=== PATIENT | male | born 1955 | race Caucasian/White ===

== ENCOUNTER 2021-06-20 20:54 | Emergency (ER) | payer OTHER, MEDICAID ==
[~2021-06-20] VITALS: Ht 170.2 cm; Wt 73.0 kg
[~2021-06-20 20:54] MED LIST: DOCU250C14; MOTRIN; TRAM50TA94; ZOLP5TAB2
[2021-06-20] MEDS ORDERED: LIDOCAINE 5% PATCH TOP SCH (21:30)
[2021-06-20] MEDS ORDERED: ACETAMINOPHEN 650MG/20.3ML UDC PO ONE (21:30)
[2021-06-20] MEDS ORDERED: METHOCARBAMOL 500MG TABLET PO ONE (21:30)
[2021-06-20] MEDS ORDERED: KETOROLAC 60MG/2ML VIAL IM ONE (23:00)
[2021-06-20] MEDS ORDERED: MORPHINE SULFATE 4 MG/ML CPJ (NOT FOR IM USE) IV ONE (23:30)
[2021-06-21] MEDS ORDERED: METH-653 MT (00:31)
[2021-06-21] MEDS ORDERED: IBUP-2028 MT (00:31)
[2021-06-21] MEDS ORDERED: LIDO1ADH5 TP (00:32)
[2021-06-21] MEDS ORDERED: MORPHINE SULFATE 10 MG/ML CPJ IM ONE (01:15)
[2021-06-21 01:36] VITALS: BP 146/76
== END 2021-06-21 01:55 | disposition home or self-care (01) ==
LOC: ER 20:54
DX: M54.6 Pain in thoracic spine (principal); Z79.899 Other long term (current) drug therapy; Z98.890 Other specified postprocedural states; Y08.89XA Assault by other specified means, initial encounter; Y93.89 Activity, other specified; Y92.89 Other specified places as the place of occurrence of the external cause; Y99.8 Other external cause status
CPT/HCPCS: 70450; 71250; 72125; 74176; 96372; 99284; J1885; J2270

== ENCOUNTER 2022-12-14 10:05 | Emergency (ER) | payer OTHER, MEDICAID ==
[~2022-12-14] VITALS: Ht 167.6 cm; Wt 65.0 kg
[~2022-12-14 10:05] MED LIST changes: +IBUP-2028 MT; +LIDO1ADH5 TP; +METH-653 MT
[2022-12-14 10:08] VITALS: O2SAT 98
[2022-12-14] MEDS ORDERED: HYDROCODONE/ACETAMINOPHEN 5/325MG TABLET PO ONE (10:30)
[2022-12-14] MEDS ORDERED: OXYC-100 MT (12:38)
[2022-12-14 12:53] VITALS: BP 135/75; PULSE 85; RESP 16; TEMP 98.7
[2022-12-14] MEDS ORDERED: HYDR-4001 MT (13:09)
== END 2022-12-14 12:56 | disposition home or self-care (01) ==
LOC: ER 10:23
DX: G89.29 Other chronic pain (principal); M54.50 Low back pain, unspecified
CPT/HCPCS: 72100; 99283

== ENCOUNTER 2022-12-15 10:07 | Inpatient (IN) | payer OTHER, MEDICAID ==
[~2022-12-15] VITALS: Ht 175.3 cm; Wt 61.7 kg
[~2022-12-15 10:07] MED LIST changes: +HYDR-4001 MT; +OXYC-100 MT
[2022-12-15] MEDS ORDERED: ASPIRIN 81MG TABLET PO ONE (10:45)
[2022-12-15 11:59] LABS: HEMATOCRIT 48.8 % (42.0-52.0); MEAN CORPUSCULAR HEMOGLOBIN 29.5 pg (28.0-32.0); MEAN CORPUSCULAR HGB CONC 32.9 g/dL (31.0-37.0); MEAN CORPUSCULAR VOLUME 89.8 fL (80.0-94.0); PLATELET 369 x1000/uL (130-400); RED BLOOD CELL COUNT 5.44 mill/uL (4.7-6.1); RED CELL DISTRIBUTION WIDTH 13.7 % (11.6-14.6); WHITE BLOOD COUNT 23.6 x1000/uL (4.5-11.0)
[2022-12-15 12:07] LABS: CHLORIDE 100 mEq/L (98-107); INDEX HEMOLYSI 1 (1-3); INDEX ICTERIC 1 (1-4); INDEX LIPEMIC 1 (1-3); POTASSIUM 3.2 mEq/L (3.5-5.1); SODIUM 133 mEq/L (136-145)
[2022-12-15 12:11] LABS: INR 1.1; PARTIAL THROMBOPLASTIN TIME 25.4 sec (23.4-31.0); PROTHROMBIN TIME 11.9 sec (9.6-11.0)
[2022-12-15 12:29] LABS: ALANINE AMINOTRANSFERASE 45 IU/L (13-61); ALBUMIN 3.2 g/dL (3.4-5.0); ASPARTATE AMINOTRANSFERASE 22 IU/L (15-37); BILIRUBIN TOTAL 0.9 mg/dL (0.1-1.0); CALCIUM 9.6 mg/dL (8.5-10.1); CARBON DIOXIDE 23 mEq/L (21-32); CREATININE 0.6 mg/dL (0.6-1.3); GLUCOSE 145 mg/dL (70-105); PROTEIN TOTAL 7.7 g/dL (6.0-8.3); TROPONIN I HIGH SENSITIVITY 25 ng/L (<78); UREA NITROGEN BLOOD 27 mg/dL (7-21)
[2022-12-15 15:38] LABS: TROPONIN I HIGH SENSITIVITY 24 ng/L (<78)
[2022-12-16 14:54] VITALS: BP 153/73; PULSE 88; RESP 18; TEMP 97.5
[2022-12-16] MEDS ORDERED: ACETAMINOPHEN 325MG TABLET PO PRN (15:45)
[2022-12-16] MEDS ORDERED: IPRATROPIUM/ALBUTEROL 0.5-3(2.5)MG/3ML NEB HHN PRN (15:45)
[2022-12-16] MEDS: AMLODIPINE 10MG TABLET PO SCH ×2 (15:45→16:35)
[2022-12-16] MEDS ORDERED: DOCUSATE SODIUM 100MG CAPSULE PO PRN (15:45)
[2022-12-16] MEDS ORDERED: ONDANSETRON HCL 4MG/2ML INJ IV PRN (15:45)
[2022-12-16] MEDS ORDERED: POTASSIUM CHLORIDE 20MEQ TABLET SR PO NR (15:45)
[2022-12-16] MEDS ORDERED: CLONIDINE 0.1MG TABLET PO PRN (15:45)
[2022-12-16 16:00] VITALS: BP 153/73; PULSE 88; RESP 18; TEMP 97.5
[2022-12-16] MEDS: ASPIRIN 81MG TABLET PO SCH (16:34)
[2022-12-16] MEDS: KETOROLAC 30MG/ML VIAL IV PRN (16:34)
[2022-12-16] MEDS: ENOXAPARIN 40MG/0.4ML SYR SUBCUT SCH ×2 (16:34→16:39)
[2022-12-16] MEDS: HYDROCODONE/ACETAMINOPHEN 5/325MG TABLET PO PRN (19:41)
[2022-12-16 20:00] VITALS: BP 145/67; PULSE 81; RESP 20; TEMP 98
[2022-12-17] VITALS: BP 153/72; PULSE 79; RESP 20; TEMP 97.5
[2022-12-17] MEDS: HYDROCODONE/ACETAMINOPHEN 5/325MG TABLET PO PRN (01:00)
[2022-12-17 01:08] LABS: INDEX HEMOLYSI 3 (1-3)
[2022-12-17 01:22] LABS: CREATINE KINASE 29 IU/L (39-308); CREATINE KINASE MB FRACTION < 1.0 ng/mL (0.5-3.6); TROPONIN I HIGH SENSITIVITY 15 ng/L (<78)
[2022-12-17 04:00] VITALS: BP 164/77; PULSE 71; RESP 20; TEMP 97.8
[2022-12-17] MEDS: KETOROLAC 30MG/ML VIAL IV PRN ×3 (06:15→22:52)
[2022-12-17 06:37] LABS: BASOPHILS % 0.7 % (0.0-2.0); EOSINOPHILS % 1.6 % (0.0-5.0); HEMATOCRIT. 46.1 % (42.0-52.0); HEMOGLOBIN. 15.7 g/dL (14.0-18.0); LYMPHOCYTES % 13.1 % (20.0-50.0); MEAN CORPUSCULAR HEMOGLOBIN 30.7 pg (28.0-32.0); MEAN CORPUSCULAR HGB CONC 34.1 g/dL (31.0-37.0); MEAN CORPUSCULAR VOLUME 90.1 fL (80.0-94.0); MEAN PLATELET VOLUME 9.3 fl (7.4-10.4); MONOCYTES % 8.9 % (2.0-8.0); NEUTROPHILS % 75.7 % (40.0-76.0); PLATELET 336 x1000/uL (130-400); RED BLOOD CELL COUNT 5.12 mill/uL (4.7-6.1); RED CELL DISTRIBUTION WIDTH 13.8 % (11.6-14.6); WHITE BLOOD COUNT 14.8 x1000/uL (4.5-11.0)
[2022-12-17 06:55] LABS: CHLORIDE 100 mEq/L (98-107); INDEX HEMOLYSI 1 (1-3); INDEX ICTERIC 1 (1-4); INDEX LIPEMIC 1 (1-3); POTASSIUM 3.8 mEq/L (3.5-5.1); SODIUM 134 mEq/L (136-145)
[2022-12-17 07:05] LABS: CALCIUM 8.8 mg/dL (8.5-10.1); CARBON DIOXIDE 28 mEq/L (21-32); CHOLESTEROL 105 mg/dL (<200); CREATINE KINASE 23 IU/L (39-308); CREATINE KINASE MB FRACTION 1.1 ng/mL (0.5-3.6); CREATININE 0.5 mg/dL (0.6-1.3); GLUCOSE 123 mg/dL (70-105); HDL CHOLESTEROL 28 mg/dL (40-59); LDL CHOLESTEROL 74 mg/dL (5-100); TRIGLYCERIDE 94 mg/dL (0-150); TROPONIN I HIGH SENSITIVITY 15 ng/L (<78); UREA NITROGEN BLOOD 16 mg/dL (7-21)
[2022-12-17 08:00] VITALS: BP 134/80; PULSE 72; RESP 20; TEMP 97.9
[2022-12-17] MEDS: ASPIRIN 81MG TABLET PO SCH (09:18)
[2022-12-17] MEDS: PANTOPRAZOLE SODIUM 40 MG/VIAL IV SCH (09:18)
[2022-12-17] MEDS: AMLODIPINE 10MG TABLET PO SCH (09:18)
[2022-12-17 12:00] VITALS: BP 135/78; PULSE 71; RESP 20; TEMP 97.8
[2022-12-17 16:00] VITALS: BP 114/82; PULSE 100; RESP 20; TEMP 97.2
[2022-12-17] MEDS: ENOXAPARIN 40MG/0.4ML SYR SUBCUT SCH (17:00)
[2022-12-17 20:00] VITALS: BP 164/79; PULSE 71; RESP 18; TEMP 96.6
[2022-12-18] VITALS: BP 119/68; PULSE 87; RESP 19; TEMP 97.8
[2022-12-18 04:00] VITALS: BP 124/70; PULSE 75; RESP 20; TEMP 98.5
[2022-12-18] MEDS: KETOROLAC 30MG/ML VIAL IV PRN ×3 (05:09→23:47)
[2022-12-18 08:00] VITALS: BP 164/89; PULSE 79; RESP 20; TEMP 98.1
[2022-12-18] MEDS: AMLODIPINE 10MG TABLET PO SCH (09:34)
[2022-12-18] MEDS: PANTOPRAZOLE SODIUM 40 MG/VIAL IV SCH (09:34)
[2022-12-18] MEDS: ASPIRIN 81MG TABLET PO SCH (09:34)
[2022-12-18] MEDS: RISPERIDONE 0.5MG TABLET PO SCH ×2 (09:34→17:28)
[2022-12-18 12:00] VITALS: BP 113/59; PULSE 86; RESP 20; TEMP 97.4
[2022-12-18 16:00] VITALS: BP 138/79; PULSE 80; RESP 18; TEMP 98.1
[2022-12-18] MEDS: ENOXAPARIN 40MG/0.4ML SYR SUBCUT SCH (17:30)
[2022-12-18 20:00] VITALS: BP 122/56; PULSE 78; RESP 20; TEMP 97.6
[2022-12-19 00:36] VITALS: BP 125/83; PULSE 94; RESP 18; TEMP 97.2
[2022-12-19 04:00] VITALS: BP 127/67; PULSE 77; RESP 20; TEMP 97.4
[2022-12-19 08:00] VITALS: BP 138/80; PULSE 89; RESP 20; TEMP 97.9
[2022-12-19] MEDS: ASPIRIN 81MG TABLET PO SCH (09:09)
[2022-12-19] MEDS: AMLODIPINE 10MG TABLET PO SCH (09:09)
[2022-12-19] MEDS: RISPERIDONE 0.5MG TABLET PO SCH ×2 (09:09→18:29)
[2022-12-19] MEDS: KETOROLAC 30MG/ML VIAL IV PRN (09:10)
[2022-12-19] MEDS: FAMOTIDINE 20MG/2ML VIAL IV SCH ×2 (09:39→22:32)
[2022-12-19] MEDS ORDERED: NALOXONE HCL 0.4MG/ML VIAL IV PRN (14:30)
[2022-12-19] MEDS: ENOXAPARIN 40MG/0.4ML SYR SUBCUT SCH (18:29)
[2022-12-19] MEDS: HYDROCODONE/ACETAMINOPHEN 5/325MG TABLET PO PRN ×2 (18:30→22:31)
[2022-12-20] VITALS: BP 122/64; PULSE 68; RESP 15; TEMP 97.9
[2022-12-20 04:00] VITALS: BP 135/82; PULSE 85; RESP 16; TEMP 97.7
[2022-12-20] MEDS: HYDROCODONE/ACETAMINOPHEN 5/325MG TABLET PO PRN ×3 (07:14→22:07)
[2022-12-20 08:00] VITALS: BP 126/70; PULSE 88; RESP 18; TEMP 97.1
[2022-12-20] MEDS: FAMOTIDINE 20MG/2ML VIAL IV SCH ×3 (09:00→21:53)
[2022-12-20] MEDS: ASPIRIN 81MG TABLET PO SCH (09:00)
[2022-12-20] MEDS: RISPERIDONE 0.5MG TABLET PO SCH ×2 (09:00→17:00)
[2022-12-20] MEDS: AMLODIPINE 10MG TABLET PO SCH (09:00)
[2022-12-20 12:00] VITALS: BP 140/74; PULSE 74; RESP 18; TEMP 97.4
[2022-12-20 16:00] VITALS: BP 119/73; PULSE 86; RESP 18; TEMP 97.5
[2022-12-20] MEDS: ENOXAPARIN 40MG/0.4ML SYR SUBCUT SCH (17:00)
[2022-12-21] MEDS: HYDROCODONE/ACETAMINOPHEN 5/325MG TABLET PO PRN ×2 (05:17→17:26)
[2022-12-21] MEDS: FAMOTIDINE 20MG/2ML VIAL IV SCH ×2 (09:00→21:27)
[2022-12-21] MEDS: ASPIRIN 81MG TABLET PO SCH (10:24)
[2022-12-21] MEDS: RISPERIDONE 0.5MG TABLET PO SCH (10:24)
[2022-12-21] MEDS: AMLODIPINE 10MG TABLET PO SCH (10:24)
[2022-12-21] MEDS ORDERED: LORAZEPAM 2MG/ML CPJ IV NR (13:15)
[2022-12-21] MEDS: RISPERIDONE 1MG TABLET PO SCH ×2 (13:30→21:26)
[2022-12-21] MEDS: ENOXAPARIN 40MG/0.4ML SYR SUBCUT SCH (17:00)
[2022-12-21 20:00] VITALS: PULSE 107; RESP 18; TEMP 99.1
[2022-12-21] MEDS: ACETAMINOPHEN 325MG TABLET PO PRN (21:26)
[2022-12-22] VITALS: BP 113/62; PULSE 89; RESP 18; TEMP 98.9
[2022-12-22 04:00] VITALS: BP 132/82; PULSE 84; RESP 16; TEMP 97.6
[2022-12-22 08:00] VITALS: BP 111/67; PULSE 72; RESP 16; TEMP 98.1
[2022-12-22] MEDS: ASPIRIN 81MG TABLET PO SCH (09:00)
[2022-12-22] MEDS: RISPERIDONE 1MG TABLET PO SCH ×2 (09:00→22:02)
[2022-12-22] MEDS: AMLODIPINE 10MG TABLET PO SCH (09:00)
[2022-12-22] MEDS: FAMOTIDINE 20MG/2ML VIAL IV SCH (09:00)
[2022-12-22] MEDS: ACETAMINOPHEN 325MG TABLET PO PRN ×2 (09:30→22:03)
[2022-12-22 12:00] VITALS: BP 110/60; PULSE 75; RESP 17; TEMP 98.5
[2022-12-22 16:00] VITALS: BP 118/71; PULSE 70; RESP 16; TEMP 98.7
[2022-12-22] MEDS: ENOXAPARIN 40MG/0.4ML SYR SUBCUT SCH (17:16)
[2022-12-22 20:00] VITALS: BP 104/61; PULSE 80; RESP 18; TEMP 97.4
[2022-12-22] MEDS: FAMOTIDINE 20MG TABLET PO SCH (22:02)
[2022-12-23] VITALS: BP 155/80; PULSE 46; RESP 17; TEMP 96.8
[2022-12-23 08:00] VITALS: BP 128/86; PULSE 84; RESP 18; TEMP 96.4
[2022-12-23] MEDS: FAMOTIDINE 20MG TABLET PO SCH ×2 (09:00→21:57)
[2022-12-23] MEDS: RISPERIDONE 1MG TABLET PO SCH ×2 (09:00→21:57)
[2022-12-23] MEDS: AMLODIPINE 10MG TABLET PO SCH (09:00)
[2022-12-23] MEDS: ASPIRIN 81MG TABLET PO SCH (09:00)
[2022-12-23] MEDS: CEFEPIME 1,000 MG in DEXTROSE 5% WATER 50 ML IV SCH ×2 (11:00→22:41)
[2022-12-23 12:00] VITALS: BP 142/70; PULSE 78; RESP 18; TEMP 97.6
[2022-12-23 16:00] VITALS: BP 137/67; PULSE 80; RESP 16; TEMP 97.5
[2022-12-23] MEDS: ENOXAPARIN 40MG/0.4ML SYR SUBCUT SCH (17:00)
[2022-12-23] MEDS: ACETAMINOPHEN 325MG TABLET PO PRN (19:02)
[2022-12-23 20:00] VITALS: BP 150/71; PULSE 64; RESP 19; TEMP 97.6
[2022-12-24] VITALS: BP 130/74; PULSE 91; RESP 16; TEMP 97.3
[2022-12-24] MEDS: ACETAMINOPHEN 325MG TABLET PO PRN ×4 (00:25→21:48)
[2022-12-24 04:00] VITALS: BP 140/80; PULSE 94; RESP 17; TEMP 97.7
[2022-12-24 08:00] VITALS: BP 136/97; PULSE 44; RESP 20; TEMP 97.9
[2022-12-24] MEDS: ASPIRIN 81MG TABLET PO SCH (09:13)
[2022-12-24] MEDS: RISPERIDONE 1MG TABLET PO SCH ×2 (09:14→21:48)
[2022-12-24] MEDS: AMLODIPINE 10MG TABLET PO SCH (09:14)
[2022-12-24] MEDS: FAMOTIDINE 20MG TABLET PO SCH ×2 (09:14→21:48)
[2022-12-24] MEDS ORDERED: HYDROCODONE/ACETAMINOPHEN 5/325MG TABLET PO NR (09:15)
[2022-12-24] MEDS: CEFEPIME 1,000 MG in DEXTROSE 5% WATER 50 ML IV SCH ×2 (11:00→23:14)
[2022-12-24 12:00] VITALS: BP 140/78; PULSE 69; RESP 20; TEMP 97.7
[2022-12-24 16:00] VITALS: BP 119/79; PULSE 55; RESP 20; TEMP 97.7
[2022-12-24] MEDS: ENOXAPARIN 40MG/0.4ML SYR SUBCUT SCH (17:00)
[2022-12-24 20:00] VITALS: BP 131/74; PULSE 95; RESP 19; TEMP 98.6
[2022-12-25] VITALS: BP 149/64; PULSE 82; RESP 18; TEMP 98.1
[2022-12-25 04:00] VITALS: BP 151/60; PULSE 85; RESP 18; TEMP 97.7
[2022-12-25 08:00] VITALS: BP 167/59; PULSE 58; RESP 18; TEMP 97.1
[2022-12-25] MEDS: RISPERIDONE 1MG TABLET PO SCH ×2 (09:10→20:56)
[2022-12-25] MEDS: ASPIRIN 81MG TABLET PO SCH (09:10)
[2022-12-25] MEDS: AMLODIPINE 10MG TABLET PO SCH (09:10)
[2022-12-25] MEDS: FAMOTIDINE 20MG TABLET PO SCH ×2 (09:11→20:56)
[2022-12-25] MEDS: CEFEPIME 1,000 MG in DEXTROSE 5% WATER 50 ML IV SCH ×2 (10:56→23:38)
[2022-12-25 12:00] VITALS: BP 125/87; PULSE 99; RESP 20; TEMP 97.6
[2022-12-25 16:00] VITALS: BP 117/67; PULSE 65; PULSE 94; RESP 18; TEMP 97.5
[2022-12-25] MEDS: ENOXAPARIN 40MG/0.4ML SYR SUBCUT SCH (16:59)
[2022-12-25] MEDS: ACETAMINOPHEN 325MG TABLET PO PRN ×2 (17:00→20:57)
[2022-12-25 20:00] VITALS: BP 122/81; PULSE 92; RESP 14; TEMP 98.9
[2022-12-26] MEDS: TRAMADOL 50MG TABLET PO PRN ×2 (03:03→20:46)
[2022-12-26 04:00] VITALS: BP 133/88; PULSE 98; RESP 16; TEMP 98.1
[2022-12-26] MEDS: ACETAMINOPHEN 325MG TABLET PO PRN ×2 (06:04→16:41)
[2022-12-26 08:00] VITALS: BP 136/76; PULSE 80; RESP 20; TEMP 98.5
[2022-12-26] MEDS: FAMOTIDINE 20MG TABLET PO SCH ×2 (09:00→20:46)
[2022-12-26] MEDS: RISPERIDONE 1MG TABLET PO SCH ×2 (09:00→20:45)
[2022-12-26] MEDS: AMLODIPINE 10MG TABLET PO SCH (09:00)
[2022-12-26] MEDS: ASPIRIN 81MG TABLET PO SCH (10:01)
[2022-12-26] MEDS: CEFEPIME 1,000 MG in DEXTROSE 5% WATER 50 ML IV SCH ×2 (11:00→22:06)
[2022-12-26 16:00] VITALS: BP 138/60; PULSE 80; RESP 20; TEMP 98.8
[2022-12-26] MEDS: ENOXAPARIN 40MG/0.4ML SYR SUBCUT SCH (17:00)
[2022-12-26 20:00] VITALS: BP 141/86; PULSE 59; RESP 18; TEMP 99.4
[2022-12-27] VITALS: BP 132/75; PULSE 68; RESP 18; TEMP 98.6
[2022-12-27] MEDS: TRAMADOL 50MG TABLET PO PRN ×2 (02:44→21:56)
[2022-12-27 04:00] VITALS: BP 127/67; PULSE 87; RESP 18; TEMP 97.9
[2022-12-27 08:00] VITALS: BP 138/70; PULSE 80; RESP 19; TEMP 98.3
[2022-12-27] MEDS ORDERED: NALOXONE HCL 0.4MG/ML VIAL IV PRN (10:15)
[2022-12-27] MEDS: FAMOTIDINE 20MG TABLET PO SCH ×2 (10:23→21:58)
[2022-12-27] MEDS: ACETAMINOPHEN 325MG TABLET PO PRN ×2 (10:23→18:39)
[2022-12-27] MEDS: ASPIRIN 81MG TABLET PO SCH (10:23)
[2022-12-27] MEDS: AMLODIPINE 10MG TABLET PO SCH (10:24)
[2022-12-27] MEDS: RISPERIDONE 1MG TABLET PO SCH ×2 (10:24→21:56)
[2022-12-27] MEDS: CEFEPIME 1,000 MG in DEXTROSE 5% WATER 50 ML IV SCH ×2 (11:19→23:00)
[2022-12-27 12:00] VITALS: BP 128/75; PULSE 78; RESP 17; TEMP 97.5
[2022-12-27 16:00] VITALS: BP 132/70; PULSE 80; RESP 19; TEMP 97.6
[2022-12-27 20:00] VITALS: BP 129/68; PULSE 88; RESP 17; TEMP 98.1
[2022-12-27] MEDS: TRAZODONE HCL 50MG TABLET PO SCH (21:57)
[2022-12-28] VITALS: BP 142/65; PULSE 89; RESP 17; TEMP 97.7
[2022-12-28 04:00] VITALS: BP 137/86; PULSE 96; RESP 19; TEMP 97.7
[2022-12-28 08:00] VITALS: BP 132/70; PULSE 78; RESP 19; TEMP 96.8
[2022-12-28] MEDS: TRAMADOL 50MG TABLET PO PRN ×3 (08:18→22:17)
[2022-12-28] MEDS: ASPIRIN 81MG TABLET PO SCH (08:18)
[2022-12-28] MEDS: AMLODIPINE 10MG TABLET PO SCH (08:18)
[2022-12-28] MEDS: FAMOTIDINE 20MG TABLET PO SCH ×2 (08:19→22:04)
[2022-12-28] MEDS: RISPERIDONE 1MG TABLET PO SCH ×2 (08:19→22:04)
[2022-12-28] MEDS: CEFEPIME 1,000 MG in DEXTROSE 5% WATER 50 ML IV SCH (10:48)
[2022-12-28 12:00] VITALS: BP 126/65; PULSE 80; RESP 18; TEMP 96.7
[2022-12-28 16:00] VITALS: BP 135/63; PULSE 79; RESP 16; TEMP 97.7
[2022-12-28] MEDS: ACETAMINOPHEN 325MG TABLET PO PRN (18:27)
[2022-12-28 20:00] VITALS: BP 116/76; PULSE 99; RESP 18; TEMP 98
[2022-12-28] MEDS: TRAZODONE HCL 50MG TABLET PO SCH (22:04)
[2022-12-29] VITALS: BP 126/70; PULSE 94; RESP 18; TEMP 97.7
[2022-12-29 04:00] VITALS: BP 118/77; PULSE 96; RESP 18; TEMP 96.9
[2022-12-29 08:00] VITALS: BP 136/81; PULSE 88; RESP 18; TEMP 98.1
[2022-12-29] MEDS: ASPIRIN 81MG TABLET PO SCH (09:33)
[2022-12-29] MEDS: ACETAMINOPHEN 325MG TABLET PO PRN ×3 (09:34→18:36)
[2022-12-29] MEDS: RISPERIDONE 1MG TABLET PO SCH ×2 (09:34→20:59)
[2022-12-29] MEDS: FAMOTIDINE 20MG TABLET PO SCH ×2 (09:34→20:59)
[2022-12-29 12:00] VITALS: BP 127/78; PULSE 99; RESP 20; TEMP 97.7
[2022-12-29 16:00] VITALS: BP 127/67; PULSE 78; RESP 20; TEMP 97.9
[2022-12-29 20:00] VITALS: BP 118/76; PULSE 70; RESP 18; TEMP 97.7
[2022-12-29] MEDS: TRAZODONE HCL 50MG TABLET PO SCH (21:00)
[2022-12-30 04:00] VITALS: BP 162/56; PULSE 98; RESP 19; TEMP 98.8
[2022-12-30 08:00] VITALS: BP 112/71; PULSE 87; RESP 20; TEMP 97.5
[2022-12-30] MEDS: ASPIRIN 81MG TABLET PO SCH (09:37)
[2022-12-30] MEDS: RISPERIDONE 1MG TABLET PO SCH ×2 (09:37→20:05)
[2022-12-30] MEDS: ACETAMINOPHEN 325MG TABLET PO PRN ×2 (09:37→16:25)
[2022-12-30] MEDS: FAMOTIDINE 20MG TABLET PO SCH ×2 (09:37→20:04)
[2022-12-30] MEDS: AMLODIPINE 10MG TABLET PO SCH (09:37)
[2022-12-30 12:00] VITALS: BP 117/68; PULSE 95; RESP 20; TEMP 96.7
[2022-12-30 16:00] VITALS: BP 120/81; PULSE 72; RESP 20; TEMP 97.7
[2022-12-30] MEDS: TRAMADOL 50MG TABLET PO PRN (19:59)
[2022-12-30 20:00] VITALS: BP 136/58; PULSE 93; RESP 16; TEMP 98
[2022-12-30] MEDS: TRAZODONE HCL 50MG TABLET PO SCH ×2 (20:04→22:00)
[2022-12-31 04:00] VITALS: BP 130/70; PULSE 91; RESP 18; TEMP 98
[2022-12-31 08:00] VITALS: BP 133/86; PULSE 80; RESP 20; TEMP 97.1
[2022-12-31] MEDS: ACETAMINOPHEN 325MG TABLET PO PRN ×2 (09:32→16:43)
[2022-12-31] MEDS: FAMOTIDINE 20MG TABLET PO SCH ×2 (09:33→20:20)
[2022-12-31] MEDS: RISPERIDONE 1MG TABLET PO SCH ×2 (09:33→20:21)
[2022-12-31] MEDS: AMLODIPINE 10MG TABLET PO SCH (09:33)
[2022-12-31] MEDS: ASPIRIN 81MG TABLET PO SCH (09:34)
[2022-12-31 12:00] VITALS: BP 128/75; PULSE 87; RESP 20; TEMP 98.1
[2022-12-31 16:00] VITALS: BP 105/58; PULSE 89; RESP 20; TEMP 97.7
[2022-12-31] MEDS: GUAIFENESIN-DM 200MG-20MG/10ML UDC PO PRN (16:43)
[2022-12-31] MEDS: TRAZODONE HCL 50MG TABLET PO SCH (20:20)
[2022-12-31] MEDS ORDERED: ONDANSETRON HCL 4MG TABLET PO PRN (21:53)
[2023-01-01 04:00] VITALS: BP 107/71; PULSE 68; RESP 16; TEMP 97.8
[2023-01-01 08:00] VITALS: BP 123/78; PULSE 97; RESP 20; TEMP 97.7
[2023-01-01] MEDS: ASPIRIN 81MG TABLET PO SCH (08:24)
[2023-01-01] MEDS: FAMOTIDINE 20MG TABLET PO SCH ×2 (08:24→20:49)
[2023-01-01] MEDS: GUAIFENESIN-DM 200MG-20MG/10ML UDC PO PRN (08:24)
[2023-01-01] MEDS: AMLODIPINE 10MG TABLET PO SCH (08:24)
[2023-01-01] MEDS: RISPERIDONE 1MG TABLET PO SCH ×2 (08:33→20:49)
[2023-01-01 12:00] VITALS: BP 139/73; PULSE 92; RESP 20; TEMP 97.7
[2023-01-01] MEDS: ACETAMINOPHEN 325MG TABLET PO PRN ×2 (13:06→19:37)
[2023-01-01 16:00] VITALS: BP 130/73; PULSE 91; RESP 20; TEMP 97.7
[2023-01-01 20:00] VITALS: BP 130/76; PULSE 94; RESP 17; TEMP 97.5
[2023-01-01] MEDS: TRAZODONE HCL 50MG TABLET PO SCH (20:49)
[2023-01-02] VITALS: BP 134/65; PULSE 86; RESP 17; TEMP 97.1
[2023-01-02 04:00] VITALS: BP 129/72; PULSE 92; RESP 17; TEMP 97.1
[2023-01-02 08:00] VITALS: BP 132/62; PULSE 80; RESP 20; TEMP 98.3
[2023-01-02] MEDS: AMLODIPINE 10MG TABLET PO SCH (08:33)
[2023-01-02] MEDS: RISPERIDONE 1MG TABLET PO SCH ×2 (08:33→21:29)
[2023-01-02] MEDS: ACETAMINOPHEN 325MG TABLET PO PRN (08:34)
[2023-01-02] MEDS: ASPIRIN 81MG TABLET PO SCH (08:35)
[2023-01-02] MEDS: FAMOTIDINE 20MG TABLET PO SCH ×2 (08:35→21:29)
[2023-01-02 12:00] VITALS: BP 126/65; PULSE 78; RESP 17; TEMP 98.3
[2023-01-02 16:00] VITALS: BP 132/78; PULSE 80; RESP 20; TEMP 97.1
[2023-01-02 20:00] VITALS: BP 137/77; PULSE 95; RESP 16; TEMP 97.6
[2023-01-02] MEDS: TRAZODONE HCL 50MG TABLET PO SCH (21:28)
[2023-01-03] VITALS: BP 132/78; PULSE 86; RESP 17; TEMP 97.7
[2023-01-03 04:00] VITALS: BP 132/81; PULSE 82; RESP 17; TEMP 97.9
[2023-01-03 08:00] VITALS: BP 127/92; PULSE 66; RESP 18; TEMP 97.7
[2023-01-03] MEDS: ASPIRIN 81MG TABLET PO SCH (08:58)
[2023-01-03] MEDS: AMLODIPINE 10MG TABLET PO SCH (08:59)
[2023-01-03] MEDS: FAMOTIDINE 20MG TABLET PO SCH ×2 (08:59→21:09)
[2023-01-03] MEDS: RISPERIDONE 1MG TABLET PO SCH ×2 (08:59→21:09)
[2023-01-03 12:00] VITALS: BP 132/82; PULSE 84; RESP 17; TEMP 98.1
[2023-01-03 16:00] VITALS: BP 136/78; PULSE 66; RESP 19; TEMP 99.5
[2023-01-03] MEDS: TRAZODONE HCL 50MG TABLET PO SCH (21:09)
[2023-01-04] MEDS: FAMOTIDINE 20MG TABLET PO SCH ×2 (10:06→20:33)
[2023-01-04] MEDS: GUAIFENESIN-DM 200MG-20MG/10ML UDC PO PRN (10:06)
[2023-01-04] MEDS: ACETAMINOPHEN 325MG TABLET PO PRN (10:07)
[2023-01-04] MEDS: RISPERIDONE 1MG TABLET PO SCH ×2 (10:07→20:34)
[2023-01-04] MEDS: ASPIRIN 81MG TABLET PO SCH (10:07)
[2023-01-04] MEDS: AMLODIPINE 10MG TABLET PO SCH (10:08)
[2023-01-04 20:00] VITALS: BP 115/70; PULSE 70; RESP 19; TEMP 98.2
[2023-01-04] MEDS: TRAZODONE HCL 50MG TABLET PO SCH (20:34)
[2023-01-05] MEDS: ACETAMINOPHEN 325MG TABLET PO PRN ×2 (06:45→14:46)
[2023-01-05 08:00] VITALS: BP 132/72; PULSE 85; RESP 16; TEMP 97.6
[2023-01-05] MEDS: RISPERIDONE 1MG TABLET PO SCH ×2 (09:34→20:21)
[2023-01-05] MEDS: ASPIRIN 81MG TABLET PO SCH (09:34)
[2023-01-05] MEDS: AMLODIPINE 10MG TABLET PO SCH (09:34)
[2023-01-05] MEDS: FAMOTIDINE 20MG TABLET PO SCH ×2 (09:35→20:21)
[2023-01-05 12:00] VITALS: BP 127/65; PULSE 92; RESP 18; TEMP 98.5
[2023-01-05 20:00] VITALS: BP 124/58; PULSE 90; RESP 18; TEMP 97.7
[2023-01-05] MEDS: TRAZODONE HCL 50MG TABLET PO SCH (20:21)
[2023-01-05] MEDS: GUAIFENESIN-DM 200MG-20MG/10ML UDC PO PRN (22:27)
[2023-01-06] VITALS: BP 136/78; PULSE 90; RESP 18; TEMP 97.5
[2023-01-06] MEDS: ACETAMINOPHEN 325MG TABLET PO PRN ×2 (02:07→08:54)
[2023-01-06 08:34] VITALS: BP 90/53; PULSE 70; RESP 20; TEMP 98
[2023-01-06] MEDS: ASPIRIN 81MG TABLET PO SCH (08:50)
[2023-01-06] MEDS: RISPERIDONE 1MG TABLET PO SCH ×2 (08:51→20:21)
[2023-01-06] MEDS: FAMOTIDINE 20MG TABLET PO SCH ×2 (08:51→20:21)
[2023-01-06] MEDS: AMLODIPINE 10MG TABLET PO SCH (08:51)
[2023-01-06 20:00] VITALS: BP 112/53; PULSE 81; RESP 18; TEMP 96.7
[2023-01-06] MEDS: TRAZODONE HCL 50MG TABLET PO SCH (20:21)
[2023-01-07] MEDS: ACETAMINOPHEN 325MG TABLET PO PRN ×2 (01:54→11:32)
[2023-01-07] MEDS: GUAIFENESIN-DM 200MG-20MG/10ML UDC PO PRN (01:54)
[2023-01-07 04:00] VITALS: BP 110/58; PULSE 84; RESP 18; TEMP 97.7
[2023-01-07 08:00] VITALS: BP 130/81; PULSE 80; RESP 18; TEMP 97.5
[2023-01-07] MEDS: ASPIRIN 81MG TABLET PO SCH (11:31)
[2023-01-07] MEDS: FAMOTIDINE 20MG TABLET PO SCH ×2 (11:31→20:57)
[2023-01-07] MEDS: RISPERIDONE 1MG TABLET PO SCH ×2 (11:32→20:57)
[2023-01-07] MEDS: AMLODIPINE 10MG TABLET PO SCH (11:33)
[2023-01-07 12:00] VITALS: BP 120/73; PULSE 79; RESP 20; TEMP 97.5
[2023-01-07 16:00] VITALS: BP 140/68; PULSE 88; RESP 20; TEMP 96.6
[2023-01-07] MEDS: TRAZODONE HCL 50MG TABLET PO SCH (20:57)
[2023-01-08] VITALS: BP 146/84; PULSE 84; RESP 17; TEMP 97.1
[2023-01-08] MEDS: ACETAMINOPHEN 325MG TABLET PO PRN ×3 (03:48→20:58)
[2023-01-08 04:00] VITALS: BP 128/80; PULSE 85; RESP 18; TEMP 98.1
[2023-01-08 08:00] VITALS: BP 125/79; PULSE 76; RESP 20; TEMP 97.1
[2023-01-08] MEDS: ASPIRIN 81MG TABLET PO SCH (09:30)
[2023-01-08] MEDS: RISPERIDONE 1MG TABLET PO SCH (09:31)
[2023-01-08] MEDS: AMLODIPINE 10MG TABLET PO SCH (09:31)
[2023-01-08] MEDS: FAMOTIDINE 20MG TABLET PO SCH ×2 (09:31→20:58)
[2023-01-08 12:00] VITALS: BP 114/69; PULSE 85; RESP 19; TEMP 97.5
[2023-01-08 16:00] VITALS: BP 113/68; PULSE 87; RESP 20; TEMP 97.8
[2023-01-08 20:00] VITALS: BP 126/75; PULSE 83; RESP 20; TEMP 97.3
[2023-01-08] MEDS: TRAZODONE HCL 50MG TABLET PO SCH (20:57)
[2023-01-08] MEDS: RISPERIDONE 0.5MG TABLET PO SCH (20:59)
[2023-01-09] VITALS: BP 97/50; PULSE 79; RESP 20; TEMP 97.5
[2023-01-09 04:00] VITALS: BP 122/58; PULSE 70; RESP 20; TEMP 97.1
[2023-01-09 08:00] VITALS: BP 120/57; PULSE 75; RESP 19; TEMP 98.2
[2023-01-09] MEDS: AMLODIPINE 10MG TABLET PO SCH (08:46)
[2023-01-09] MEDS: FAMOTIDINE 20MG TABLET PO SCH ×2 (08:46→21:06)
[2023-01-09] MEDS: ASPIRIN 81MG TABLET PO SCH (08:46)
[2023-01-09] MEDS: RISPERIDONE 0.5MG TABLET PO SCH ×2 (08:46→21:06)
[2023-01-09 12:00] VITALS: BP 123/59; PULSE 75; RESP 20; TEMP 97.6
[2023-01-09] MEDS: ACETAMINOPHEN 325MG TABLET PO PRN ×2 (13:05→18:50)
[2023-01-09 16:00] VITALS: BP 121/56; PULSE 75; RESP 20; TEMP 97.8
[2023-01-09 20:00] VITALS: BP 116/72; PULSE 84; RESP 18; TEMP 97.7
[2023-01-09] MEDS: TRAZODONE HCL 50MG TABLET PO SCH (21:06)
[2023-01-10] MEDS: ACETAMINOPHEN 325MG TABLET PO PRN ×2 (06:51→21:46)
[2023-01-10 08:00] VITALS: BP 145/83; PULSE 87; RESP 20; TEMP 97.3
[2023-01-10] MEDS: AMLODIPINE 10MG TABLET PO SCH (09:44)
[2023-01-10] MEDS: FAMOTIDINE 20MG TABLET PO SCH ×2 (09:44→21:46)
[2023-01-10] MEDS: ASPIRIN 81MG TABLET PO SCH (09:44)
[2023-01-10] MEDS: RISPERIDONE 0.5MG TABLET PO SCH ×2 (09:45→21:46)
[2023-01-10 12:00] VITALS: BP 108/71; PULSE 91; RESP 20; TEMP 97.7
[2023-01-10 16:00] VITALS: BP 114/69; PULSE 83; RESP 18; TEMP 97.4
[2023-01-10 20:00] VITALS: BP 131/84; PULSE 82; RESP 16; TEMP 97.7
[2023-01-10] MEDS: TRAZODONE HCL 50MG TABLET PO SCH (21:46)
[2023-01-11 04:00] VITALS: BP 110/62; PULSE 87; RESP 17; TEMP 97.9
[2023-01-11] MEDS: ACETAMINOPHEN 325MG TABLET PO PRN ×2 (07:02→21:52)
[2023-01-11 08:00] VITALS: BP 126/73; PULSE 83; RESP 20; TEMP 97.7
[2023-01-11] MEDS: AMLODIPINE 10MG TABLET PO SCH (08:52)
[2023-01-11] MEDS: RISPERIDONE 0.5MG TABLET PO SCH ×2 (08:52→21:51)
[2023-01-11] MEDS: ASPIRIN 81MG TABLET PO SCH (08:53)
[2023-01-11] MEDS: FAMOTIDINE 20MG TABLET PO SCH ×2 (08:53→21:51)
[2023-01-11 12:00] VITALS: BP 139/64; PULSE 88; RESP 20; TEMP 97.6
[2023-01-11 16:00] VITALS: BP_SYST 115; BP_SYST 94; BP_DIAS 41; BP_DIAS 69; PULSE 84; PULSE 88; RESP 18; RESP 20; TEMP 97.9; TEMP 98.2
[2023-01-11 20:00] VITALS: BP 122/72; PULSE 83; RESP 20; TEMP 98.1
[2023-01-11] MEDS: TRAZODONE HCL 50MG TABLET PO SCH (21:51)
[2023-01-12] VITALS: BP 119/61; PULSE 84; RESP 20; TEMP 97.5
[2023-01-12 04:00] VITALS: BP 126/71; PULSE 78; RESP 20; TEMP 97.2
[2023-01-12 08:00] VITALS: BP 100/70; PULSE 86; RESP 19; TEMP 97.7
[2023-01-12] MEDS: RISPERIDONE 0.5MG TABLET PO SCH ×2 (09:22→21:22)
[2023-01-12] MEDS: ACETAMINOPHEN 325MG TABLET PO PRN ×3 (09:23→22:57)
[2023-01-12] MEDS: AMLODIPINE 10MG TABLET PO SCH (09:23)
[2023-01-12] MEDS: FAMOTIDINE 20MG TABLET PO SCH ×2 (09:23→21:22)
[2023-01-12] MEDS: ASPIRIN 81MG TABLET PO SCH (09:23)
[2023-01-12 12:00] VITALS: BP 112/72; PULSE 81; RESP 20; TEMP 96.4
[2023-01-12 20:00] VITALS: BP 117/70; PULSE 84; RESP 20; TEMP 97.9
[2023-01-12] MEDS: TRAZODONE HCL 50MG TABLET PO SCH (21:22)
[2023-01-13 00:15] VITALS: BP 128/66; PULSE 80; RESP 20; TEMP 98.4
[2023-01-13 04:00] VITALS: BP 140/73; PULSE 75; RESP 20; TEMP 97.7
[2023-01-13 08:00] VITALS: BP 134/77; PULSE 76; RESP 19; TEMP 98.3
[2023-01-13] MEDS: RISPERIDONE 0.5MG TABLET PO SCH ×2 (08:34→21:32)
[2023-01-13] MEDS: ASPIRIN 81MG TABLET PO SCH (08:34)
[2023-01-13] MEDS: AMLODIPINE 10MG TABLET PO SCH (08:34)
[2023-01-13] MEDS: FAMOTIDINE 20MG TABLET PO SCH ×2 (08:34→21:32)
[2023-01-13 12:00] VITALS: BP 130/87; PULSE 84; RESP 18; TEMP 97.7
[2023-01-13 16:00] VITALS: BP 128/88; PULSE 82; RESP 17; TEMP 98.6
[2023-01-13 20:00] VITALS: BP 116/71; PULSE 86; RESP 20; TEMP 96.6
[2023-01-13] MEDS: TRAZODONE HCL 50MG TABLET PO SCH (21:32)
[2023-01-14] VITALS: BP 125/78; PULSE 80; RESP 20; TEMP 96.5
[2023-01-14 04:00] VITALS: BP 115/61; PULSE 73; RESP 20; TEMP 96.7
[2023-01-14 08:00] VITALS: BP 140/82; PULSE 72; RESP 20; TEMP 97.7
[2023-01-14] MEDS: FAMOTIDINE 20MG TABLET PO SCH ×2 (08:36→21:00)
[2023-01-14] MEDS: RISPERIDONE 0.5MG TABLET PO SCH ×2 (08:38→21:00)
[2023-01-14 12:00] VITALS: BP 121/76; PULSE 87; RESP 20; TEMP 97.5
[2023-01-14 16:00] VITALS: BP 132/63; PULSE 81; RESP 20; TEMP 98.1
[2023-01-14 20:00] VITALS: BP 120/73; PULSE 86; RESP 18; TEMP 96.5
[2023-01-14] MEDS: TRAZODONE HCL 50MG TABLET PO SCH (21:00)
[2023-01-15] VITALS: BP 125/77; PULSE 77; RESP 18; TEMP 96.6
[2023-01-15 04:00] VITALS: BP 144/66; PULSE 75; RESP 18; TEMP 96.5
[2023-01-15 08:00] VITALS: BP 136/79; PULSE 72; RESP 20; TEMP 99.7
[2023-01-15] MEDS: FAMOTIDINE 20MG TABLET PO SCH ×2 (09:00→21:00)
[2023-01-15] MEDS: RISPERIDONE 0.5MG TABLET PO SCH ×2 (09:00→21:00)
[2023-01-15 12:00] VITALS: BP 147/86; PULSE 79; RESP 20; TEMP 98.4
[2023-01-15 16:00] VITALS: BP 123/71; PULSE 80; RESP 20; TEMP 98.1
[2023-01-15 20:00] VITALS: BP 121/66; PULSE 62; RESP 19; TEMP 97.7
[2023-01-15] MEDS: TRAZODONE HCL 50MG TABLET PO SCH (21:00)
[2023-01-16] VITALS: BP 135/79; PULSE 67; RESP 18; TEMP 98.1
[2023-01-16 04:00] VITALS: BP 142/72; PULSE 76; RESP 19; TEMP 97.9
[2023-01-16 08:00] VITALS: BP 124/70; PULSE 74; RESP 19; TEMP 97.7
[2023-01-16] MEDS: RISPERIDONE 0.5MG TABLET PO SCH ×2 (09:00→21:00)
[2023-01-16] MEDS: FAMOTIDINE 20MG TABLET PO SCH (09:00)
[2023-01-16 12:00] VITALS: BP 128/69; PULSE 78; RESP 19; TEMP 97.9
[2023-01-16 16:00] VITALS: BP 131/76; PULSE 80; RESP 19; TEMP 97.7
[2023-01-16 20:00] VITALS: BP 148/79; PULSE 76; RESP 16; TEMP 98.1
[2023-01-16] MEDS: TRAZODONE HCL 50MG TABLET PO SCH (21:00)
[2023-01-17] VITALS: BP 139/79; PULSE 71; RESP 20; TEMP 96.7
[2023-01-17 04:00] VITALS: BP 127/72; PULSE 68; RESP 20; TEMP 97.1
[2023-01-17 08:00] VITALS: BP 126/71; PULSE 74; RESP 18; TEMP 97.5
[2023-01-17] MEDS: RISPERIDONE 0.5MG TABLET PO SCH ×3 (09:00→20:53)
[2023-01-17 12:00] VITALS: BP 126/85; PULSE 74; RESP 20; TEMP 97.2
[2023-01-17 16:00] VITALS: BP 122/71; PULSE 71; RESP 20; TEMP 97.5
[2023-01-17 20:00] VITALS: PULSE 64; RESP 20; TEMP 98.1
[2023-01-17] MEDS: TRAZODONE HCL 50MG TABLET PO SCH (20:53)
[2023-01-17] MEDS: HYDROCODONE/ACETAMINOPHEN 5/325MG TABLET PO PRN (23:24)
[2023-01-18] VITALS: BP 124/72; PULSE 70; RESP 20; TEMP 97.5
[2023-01-18 04:00] VITALS: BP 113/74; PULSE 60; RESP 20; TEMP 96.8
[2023-01-18 08:00] VITALS: BP 144/78; PULSE 75; RESP 19; TEMP 97.1
[2023-01-18] MEDS: RISPERIDONE 0.5MG TABLET PO SCH (08:37)
[2023-01-18] MEDS: HYDROCODONE/ACETAMINOPHEN 5/325MG TABLET PO PRN (08:58)
[2023-01-18 12:00] VITALS: BP 135/71; PULSE 74; RESP 19; TEMP 97.1
[2023-01-18 16:00] VITALS: BP 128/62; PULSE 76; RESP 19; TEMP 97.8; O2SAT 95
== END 2023-01-18 17:10 | disposition home or self-care (01) | DRG 205 ==
LOC: ER 10:55 → 7WST 12-16 08:07 → 4WST 12-19 16:15 → 6WST 12-20 20:37 → 6EST 01-06 12:18
PROVIDERS: ADMIT Internal Medicine; ATTEND Internal Medicine
DX: M94.0 Chondrocostal junction syndrome [Tietze] (principal); U07.1 COVID-19; E87.1 Hypo-osmolality and hyponatremia; F29 Unspecified psychosis not due to a substance or known physiological condition; E87.6 Hypokalemia; R73.9 Hyperglycemia, unspecified; M54.9 Dorsalgia, unspecified; D72.829 Elevated white blood cell count, unspecified; I10 Essential (primary) hypertension; F17.210 Nicotine dependence, cigarettes, uncomplicated; F22 Delusional disorders; I25.2 Old myocardial infarction; Z59.00 Homelessness unspecified; W18.30XA Fall on same level, unspecified, initial encounter; Y93.89 Activity, other specified; Y92.89 Other specified places as the place of occurrence of the external cause; Y99.8 Other external cause status
CPT/HCPCS: 36415; 71045; 80048; 80053; 80061; 82550; 82553; 83036; 84484; 85025; 85027; 87070; 87077; 87186; 87426; 93005; 93306; 97110; 97116; 97162; 97166; 97530; 99285; C9113; J0692; J1650; J1885; J2405; J3490; J7060